=== PATIENT | male | born 1960 | race Caucasian/White ===

== ENCOUNTER 2019-09-24 18:33 | Emergency (ER) | payer OTHER, SELFPAY ==
[2019-09-24 19:05] VITALS: BP 127/80; PULSE 95; RESP 20; TEMP 37.3; O2SAT 97
--- NOTE | 2019-09-24 19:31 | ED.URI ---
HPI - URI/Sore Throat General Chief Complaint: Upper Respiratory Infection Stated Complaint: sinus aches Time Seen by Provider: 09/24/19 19:31 Source: patient and RN notes reviewed History of Present Illness HPI Narrative: Patient is a 59-year-old male that presents the urgent care with complaints of sinus congestion body aches. Patient also complains of nonproductive cough, fatigue, nausea, headache. Patient states his symptoms started within the last 24 hours. Patient is used [place] [place] and ibuprofen. Denies any vomiting or fever. No other acute complaints. No acute distress noted. Patient with a plan of care. Related Data Home Medications Medication Instructions Recorded Confirmed fluoxetine 40 mg PO DAILY 09/24/19 09/24/19 levothyroxine 137 mcg PO DAILY 09/24/19 09/24/19 pravastatin 40 mg PO DAILY 09/24/19 09/24/19 Allergies Allergy/AdvReac Type Severity Reaction Status Date / Time No Known Allergies Allergy Verified 09/24/19 19:36 Review of Systems Review of Systems: Narrative: CONSTITUTIONAL: Denies fever, chills, or sweats. EYES: Denies visual changes, redness, or discharge. ENT: Reports congestion, postnasal drainage, rhinorrhea CARDIOVASCULAR: Denies chest pain, palpitations, or edema. RESPIRATORY: Reports nonproductive cough without dyspnea GASTROINTESTINAL: Denies abdominal pain, nausea, vomiting, or diarrhea. GENITOURINARY: Denies dysuria or hematuria. SKIN: Denies rash or itching. MUSCULOSKELETAL: Denies back pain, joint pain; reports of body aches and fatigue NEUROLOGIC: Denies headache, numbness, or weakness. All other systems reviewed are negative, except as documented in HPI. PMFSH Social History Social History Gender identity (if verbalized by the patient): Male Comments At the time of my signature, I reviewed and agree with the nursing past medical, surgical, social, and family history. There is no relevant family history pertinent to the patient complaint. Exam Narrative: Exam Narrative: GENERAL: This is a well-nourished, well-developed patient, appears flushed and slightly fatigued HEAD: normocephalic, atraumatic. EYES: PERRL. Sclera clear/white. Vision is grossly intact. EARS: External ears normal, auditory canals clear and without drainage, TMs normal without perforation. Hearing grossly intact. NOSE: External nose normal with no obvious nasal discharge, bilateral erythemic nares with clear rhinorrhea THROAT: Mucous membranes moist, posterior pharynx clear. Moderate postnasal drainage NECK: Neck supple CARDIOVASCULAR: Regular rate and rhythm without murmurs, gallops, or rubs. RESPIRATORY: Clear to auscultation. Breath sounds equal bilaterally. No wheezes, rales, or rhonchi. SKIN: warm, intact with no suspicious lesions or rash, good texture and turgor. NEURO: awake, alert, and oriented to person, place and time. There were no obvious focal neurologic abnormalities. EXTREMITIES: No clubbing, cyanosis, or edema. Course Vital Signs Vital signs: Vital Signs Temperature 99.1 F 09/24/19 19:05 Pulse Rate 95 09/24/19 19:05 Respiratory Rate 20 09/24/19 19:05 Blood Pressure 127/80 09/24/19 19:05 Pulse Oximetry 97 09/24/19 19:05 Temperature 99.1 F 09/24/19 19:05 Pulse Rate 95 09/24/19 19:05 Respiratory Rate 20 09/24/19 19:05 Blood Pressure 127/80 09/24/19 19:05 Pulse Oximetry 97 09/24/19 19:05 Reviewed MDM - URI/Sore Throat MDM Narrative Medical decision making narrative: Reviewed lab results with the patient. He is aware that he is positive for influenza B. Advised him to complete Xofluza prescription as prescribed. Make sure to eat and drink with the medication. Treat symptoms with nzac-mak-zruhavr medication such as Robitussin/Delsym for cough, Claritin for allergy-like symptoms, Flonase for nasal congestion, Tylenol/Motrin for fever/body aches. Increase fluids, especially water and rest. Use a humidifier. Be aware of symptoms of dehydr
== END 2019-09-24 19:45 | disposition home or self-care (01) ==
PROVIDERS: Emergency Provider Nurse Practitioner Family; PCP Internal Medicine
DX: J10.1 Influenza due to other identified influenza virus with other respiratory manifestations (principal); E78.00 Pure hypercholesterolemia, unspecified; E03.9 Hypothyroidism, unspecified; F32.9 Major depressive disorder, single episode, unspecified
CPT/HCPCS: 87804; 99213; G0463